=== PATIENT | male | born 1995 | race African-American/Black ===

== ENCOUNTER 2017-07-18 03:47 | Emergency (ER) | payer OTHER ==
[~2017-07-18] VITALS: Ht 175.3 cm; Wt 80.0 kg
[2017-07-18 04:17] LABS: AUTOMATED NEUTROPHIL # 4.5 TH/MM3 (1.8-7.7); BASOPHIL % 0.4 % (0.0-2.0); EOSINOPHIL % 0.3 % (0.0-4.0); HEMATOCRIT 41.7 % (39.0-51.0); HEMOGLOBIN 14.6 GM/DL (13.0-17.0); LYMPH % 41.2 % (9.0-44.0); LYMPHOCYTE # 3.6 TH/MM3 (1.0-4.8); MEAN CELL VOLUME 98.4 FL (80.0-100.0); MEAN CORPUSCULAR HEMOGLOBIN 34.6 PG (27.0-34.0); MEAN CORPUSCULAR HGB CONC 35.1 % (32.0-36.0); MONO % 6.4 % (0.0-8.0); MONOCYTE # 0.6 TH/MM3 (0-0.9); NEUT % 51.7 % (16.0-70.0); PLATELET COUNT 228 TH/MM3 (150-450); RED BLOOD COUNT 4.23 MIL/MM3 (4.50-5.90); RED CELL DISTRIBUTION WIDTH 12.5 % (11.6-17.2); WHITE BLOOD COUNT 8.7 TH/MM3 (4.0-11.0)
[2017-07-18 04:22] VITALS: BP 135/79; PULSE 89; RESP 20; TEMP 98.2; O2SAT 100
--- NOTE | 2017-07-18 04:25 | PD ---
HPI Chief Complaint: Alcohol/Drug Intoxication Time Seen by Provider: 04:00 Travel History International Travel<30 days: No Contact w/Intl Traveler<30days: No Traveled to known affect area: No History of Present Illness HPI This is a 21-year-old male presents via EMS for evaluation. Reportedly the patient was found this evening by his roommate with decreased arousability. By the time EMS arrived the patient was awake and alert. He is somewhat guarded on examination and unwilling to provide a complete history but he does endorse some degree of alcohol use tonight. He is uncertain whether any illicit substances were used. He denies any pain and is somewhat confused as to why he is here tonight. No other complaints. [facility] Social History Alcohol Use: Yes Tobacco Use: Yes Allergies-Medications (Allergen,Severity, Reaction): Coded Allergies: No Known Allergies (Unverified , 07/18/17) Reported Meds & Prescriptions Reported Meds & Active Scripts Active No Active Prescriptions or Reported Medications Review of Systems ROS Limitations: Intoxication Except as stated in HPI: all other systems reviewed are Neg Physical Exam Exam Limitations: Intoxication Narrative GENERAL: This is a well-developed well-nourished male in no acute distress. He does have a strong smell of alcohol. SKIN: Warm and dry. HEAD: Atraumatic. Normocephalic. EYES: Pupils equal and round. No scleral icterus. No injection or drainage. ENT: No nasal bleeding or discharge. Mucous membranes pink and moist. NECK: Trachea midline. No JVD. CARDIOVASCULAR: Regular rate and rhythm. No murmur appreciated. RESPIRATORY: No accessory muscle use. Clear to auscultation. Breath sounds equal bilaterally. GASTROINTESTINAL: Abdomen soft, non-tender, nondistended. Hepatic and splenic margins not palpable. MUSCULOSKELETAL: No obvious deformities. No clubbing. No cyanosis. No edema. NEUROLOGICAL: Awake and alert. No obvious cranial nerve deficits. Motor grossly within normal limits. Slurred speech. He does respond to commands appropriately. PSYCHIATRIC: Appropriate mood and affect; insight and judgment normal. Data Data Last Documented VS Vital Signs Date Time Temp Pulse Resp B/P (MAP) Pulse Ox O2 Delivery O2 Flow Rate FiO2 07/18/17 04:26 98.2 89 20 135/79 (97) 100 07/18/17 04:22 Room Air Orders Orders Complete Blood Count With Diff (07/18/17 03:59) Comprehensive Metabolic Panel (07/18/17 03:59) Psych Screen (07/18/17 03:59) Drug Screen, Random Urine (07/18/17 03:59) Alcohol (Ethanol) (07/18/17 03:59) Ct Brain W/O Iv Contrast(Rout) (07/18/17 ) Labs Laboratory Tests Test 07/18/17 04:04 07/18/17 04:10 White Blood Count 8.7 TH/MM3 Red Blood Count 4.23 MIL/MM3 Hemoglobin 14.6 GM/DL Hematocrit 41.7 % Mean Corpuscular Volume 98.4 FL Mean Corpuscular Hemoglobin 34.6 PG Mean Corpuscular Hemoglobin Concent 35.1 % Red Cell Distribution Width 12.5 % Platelet Count 228 TH/MM3 Mean Platelet Volume 7.0 FL Neutrophils (%) (Auto) 51.7 % Lymphocytes (%) (Auto) 41.2 % Monocytes (%) (Auto) 6.4 % Eosinophils (%) (Auto) 0.3 % Basophils (%) (Auto) 0.4 % Neutrophils # (Auto) 4.5 TH/MM3 Lymphocytes # (Auto) 3.6 TH/MM3 Monocytes # (Auto) 0.6 TH/MM3 Eosinophils # (Auto) 0.0 TH/MM3 Basophils # (Auto) 0.0 TH/MM3 CBC Comment DIFF FINAL Differential Comment Blood Urea Nitrogen 11 MG/DL Creatinine 1.06 MG/DL Random Glucose 125 MG/DL Total Protein 8.1 GM/DL Albumin 4.7 GM/DL Calcium Level 8.7 MG/DL Alkaline Phosphatase 58 U/L Aspartate Amino Transf (AST/SGOT) 39 U/L Alanine Aminotransferase (ALT/SGPT) 60 U/L Total Bilirubin 0.3 MG/DL Sodium Level 145 MEQ/L Potassium Level 3.5 MEQ/L Chloride Level 109 MEQ/L Carbon Dioxide Level 27.3 MEQ/L Anion Gap 9 MEQ/L Estimat Glomerular Filtration Rate 87 ML/MIN Ethyl Alcohol Level 292 MG/DL Urine Opiates Screen NEG Urine Barbiturates Screen NEG Urine Amphetamines Screen NEG Urine Benzodiazepines Screen NEG Urine Cocaine Screen NEG Urine Cannabinoids Screen NEG MDM Medical Decision Making Medical Screen Exam Complete: Yes Emergency Medical Condition: Yes Medical Record Reviewed: Yes Differential Diagnosis Alcohol intoxication, polysubstance abuse, closed head injury, hypoglycemia, metabolic derangement Narrative Course Plan is for basic lab work, CT of the brain. CT the brain is normal. Lab work reveals an alcohol level of 292. Initially the patient's roommate/boyfriend was present at bedside however upon completion of his lab work and imaging studies, he has went home. Therefore the patient will remain here until he is sober or until he is able to obtain a sober ride home. Diagnosis Primary Impression: Alcohol intoxication Additional Instructions: Follow-up with primary care physician. Return for any emergent medical conditions. Med/Other Pt SpecificInfo: No Change to Meds Scripts No Active Prescriptions or Reported Meds Disposition: 01 DISCHARGE HOME Condition: Stable Eduin Upton Jul 18, 2017 04:25
[2017-07-18 04:26] VITALS: BP 135/79; PULSE 89; RESP 20; TEMP 98.2; O2SAT 100
[2017-07-18 04:40] LABS: ALBUMIN 4.7 GM/DL (3.4-5.0); ALT (GPT) 60 U/L (12-78); AST (GOT) 39 U/L (15-37); BICARBONATE 27.3 MEQ/L (21.0-32.0); BLOOD UREA NITROGEN 11 MG/DL (7-18); CALCIUM 8.7 MG/DL (8.5-10.1); CHLORIDE 109 MEQ/L (98-107); CREATININE 1.06 MG/DL (0.60-1.30); GLOMERULAR FILTRATION RATE 87 ML/MIN (>89); GLUCOSE,RANDOM 125 MG/DL (74-106); SODIUM (NA) 145 MEQ/L (136-145)
[2017-07-18 04:42] LABS: ALKALINE PHOSPHATASE 58 U/L (45-117); TOTAL BILIRUBIN ADULT 0.3 MG/DL (0.2-1.0); TOTAL PROTEIN 8.1 GM/DL (6.4-8.2)
--- NOTE | 2017-07-18 06:05 | RADRPT ---
EXAM DATE/TIME: 07/18/2017 04:25 [place] COMPARISON: No previous studies available for comparison. INDICATIONS : Altered mental status. RADIATION DOSE: 56.35 CTDIvol (mGy) MEDICAL HISTORY : None SURGICAL HISTORY : None. ENCOUNTER: Initial ACUITY: 1 day PAIN SCALE: 0/10 LOCATION: cranial TECHNIQUE: Multiple contiguous axial images were obtained of the head. Using automated exposure control and adj ustment of the mA and/or kV according to patient size, radiation dose was kept as low as reasonably a chievable to obtain optimal diagnostic quality images. DICOM format image data is available electro nically for review and comparison. FINDINGS: CEREBRUM: The ventricles are normal for age. No evidence of midline shift, mass lesion, hemorrhage or acute in farction. No extra-axial fluid collections are seen. POSTERIOR FOSSA: The cerebellum and brainstem are intact. The 4th ventricle is midline. The cerebellopontine angle i s unremarkable. EXTRACRANIAL: The visualized portion of the orbits is intact. SKULL: The calvaria is intact. No evidence of skull fracture. CONCLUSION: Normal examination. Deejay Mejia MD on July 18, 2017 at 6:02 Board Certified Radiologist. This report was verified electronically.
--- NOTE | 2017-07-18 09:05 | PD ---
Physical Exam Date Seen by Provider: Jul 18, 2017 Narrative 22-year-old male presented to the emergency departments intoxicated. A psych screen was initially ordered however, this is not indicated at this time. Patient's friend is in the emergency department and states she will take him home for further sobering. Patient has no complaints today. Denies suicidal or homicidal ideations. Patient states he is ready to go home. He'll be discharged and advised follow-up with primary care physician. Data Data Last Documented VS Vital Signs Date Time Temp Pulse Resp B/P (MAP) Pulse Ox O2 Delivery O2 Flow Rate FiO2 07/18/17 04:26 98.2 89 20 135/79 (97) 100 07/18/17 04:22 Room Air Orders Orders Complete Blood Count With Diff (07/18/17 03:59) Comprehensive Metabolic Panel (07/18/17 03:59) Drug Screen, Random Urine (07/18/17 03:59) Alcohol (Ethanol) (07/18/17 03:59) Ct Brain W/O Iv Contrast(Rout) (07/18/17 ) ^ Sitter (07/18/17 06:48) Ed Discharge Order (07/18/17 09:06) Labs Laboratory Tests Test 07/18/17 04:04 07/18/17 04:10 White Blood Count 8.7 TH/MM3 Red Blood Count 4.23 MIL/MM3 Hemoglobin 14.6 GM/DL Hematocrit 41.7 % Mean Corpuscular Volume 98.4 FL Mean Corpuscular Hemoglobin 34.6 PG Mean Corpuscular Hemoglobin Concent 35.1 % Red Cell Distribution Width 12.5 % Platelet Count 228 TH/MM3 Mean Platelet Volume 7.0 FL Neutrophils (%) (Auto) 51.7 % Lymphocytes (%) (Auto) 41.2 % Monocytes (%) (Auto) 6.4 % Eosinophils (%) (Auto) 0.3 % Basophils (%) (Auto) 0.4 % Neutrophils # (Auto) 4.5 TH/MM3 Lymphocytes # (Auto) 3.6 TH/MM3 Monocytes # (Auto) 0.6 TH/MM3 Eosinophils # (Auto) 0.0 TH/MM3 Basophils # (Auto) 0.0 TH/MM3 CBC Comment DIFF FINAL Differential Comment Blood Urea Nitrogen 11 MG/DL Creatinine 1.06 MG/DL Random Glucose 125 MG/DL Total Protein 8.1 GM/DL Albumin 4.7 GM/DL Calcium Level 8.7 MG/DL Alkaline Phosphatase 58 U/L Aspartate Amino Transf (AST/SGOT) 39 U/L Alanine Aminotransferase (ALT/SGPT) 60 U/L Total Bilirubin 0.3 MG/DL Sodium Level 145 MEQ/L Potassium Level 3.5 MEQ/L Chloride Level 109 MEQ/L Carbon Dioxide Level 27.3 MEQ/L Anion Gap 9 MEQ/L Estimat Glomerular Filtration Rate 87 ML/MIN Ethyl Alcohol Level 292 MG/DL Urine Opiates Screen NEG Urine Barbiturates Screen NEG Urine Amphetamines Screen NEG Urine Benzodiazepines Screen NEG Urine Cocaine Screen NEG Urine Cannabinoids Screen NEG MDM Supervised Visit with FLORA: No Diagnosis Primary Impression: Alcohol intoxication Additional Instruction: Follow-up with primary care physician. Return for any emergent medical conditions. Scripts No Active Prescriptions or Reported Meds Disposition: 01 DISCHARGE HOME Condition: Stable Rebecca Bennett Jul 18, 2017 09:05
[2017-07-18 09:15] VITALS: BP 184/80
== END 2017-07-18 09:28 | disposition home or self-care (01) ==
LOC: NEPD 03:47
DX: F10.129 Alcohol abuse with intoxication, unspecified (principal); Z72.0 Tobacco use
CPT/HCPCS: 70450; 80053; 80307; 85025; 99285